=== PATIENT | female | born 1980 | race Caucasian/White ===

== ENCOUNTER → 2017-02-09 | Outpatient (CLI) | payer OTHER, BC ==
[~2017-02-09] MED LIST: CALCIUM 500 +1 EAC5 PO; CELEBREX50 MG PO; CENTRUM SILVER1 EAC2 PO; CIPRO HC OTIC S10 ML OTIC; FLEXERIL PO; IBUPROFEN 800800 MG PO; MECLIZINE 25 MG25 M1 PO; MIRENA; NAPROSYN500 MG PO; NORCO 5-325 TA1 EAC1 PO; NORCO 5-325 TA1 EACH PO; NORFLEX100 MG PO; PRENATAL; PREVACID15 MG PO; WELLBUTRIN 75 M75 M1; WOMEN'S DAILY1 EAC2 PO
== END ==
LOC: M.RAD 15:17
DX: M25.511 Pain in right shoulder (principal); M25.611 Stiffness of right shoulder, not elsewhere classified